=== PATIENT | female | born 1940 | race Caucasian/White ===

== ENCOUNTER → 2017-02-05 | Outpatient (CLI) | payer MEDICARE, MEDICAID ==
[~2017-02-05] MED LIST: AC325T GT; ACET650S15 PR; ATOR10TA66 PO; AZIT-21 PO; BENZ100C18 PO; CEFU500T5 PO; CHOL2000 PO; GFN600TCR PO; HYDR1TAB PO; LRT10T PO; MAGN800O PO; MPR22TI TP; MTF500T PO; NF-FLON16G; RSP.25T PO
--- NOTE | 2017-02-05 18:59 | Diagnostic Imaging Report ---
Bilateral diagnostic mammogram. COMPARISON: 03/30/16. INDICATION: Periareolar nodule. Surgical biopsy was recommended; however, it was not performed, probably due to the condition of the patient. The current study was also evaluated with a Computer Aided Detection (CAD) system. FINDINGS: In the lateral periareolar region of the right breast again seen is a nodule measuring 7 mm and appears stable from the prior exam. Background of scattered fibroglandular tissues are seen with scattered benign-appearing calcifications noted bilaterally. Suggestion of intramammary lymph node in the inferomedial aspect of the left breast is seen without change. IMPRESSION: Stable 7 mm lateral periareolar lesion in the right breast is seen. Ultrasound evaluation pending. ACR BI-RADS Category 0: Incomplete. (Needs additional imaging evaluation). Result letter will be mailed to the patient. Note: At least 10% of breast cancer is not imaged by mammography. Dictated by: Dictated on workstation # [id number]
--- NOTE | 2017-02-05 19:14 | Diagnostic Imaging Report ---
EXAMINATION: Right breast ultrasound. INDICATION: Followup lateral periareolar right breast mass. COMPARISON: 03/30/2016. FINDINGS: At 9 o'clock zone, 1 cm from the nipple, there is a 0.7 x 0.3 x 0.5 cm nodule. This compares to prior measurements of 0.7 x 0.5 x 0.6 cm, stable to minimally smaller in size. There is also no internal color vascularity demonstrated with color Doppler. IMPRESSION: Questionably smaller lateral right periareolar 0.7 cm mass and with no internal vascularity demonstrated at this time. This is still indeterminate but perhaps more likely benign in etiology. A followup ultrasound in six months is recommended to reevaluate. BI-RADS 3. Dictated by: Dictated on workstation # [id number]
== END ==
LOC: RAD 12:20
PROVIDERS: ATTEND Internal Medicine
DX: R92.8 Other abnormal and inconclusive findings on diagnostic imaging of breast (principal); C50.011 Malignant neoplasm of nipple and areola, right female breast
CPT/HCPCS: 77066

== ENCOUNTER → 2017-02-24 | Outpatient (CLI) | payer MEDICARE, MEDICAID ==
[2017-02-24 12:59] LABS: BILIRUBIN,URINE NEGATIVE (NEGATIVE); KETONES,URINE NEGATIVE (NEGATIVE); LEUKOCYTE ESTERASE ,URINE 3+ (NEGATIVE); NITRITE,URINE POSITIVE (NEGATIVE); PH,URINE 7 (5-9); PROTEIN,URINE 1+ (NEGATIVE); UROBILINOGEN,URINE 1 MG/DL (NORMAL)
[2017-02-24 13:09] LABS: CALCIUM OXALATE CRYSTALS,UR FEW /LPF; WBC,URINE 50-100 /HPF
== END ==
PROVIDERS: ATTEND Internal Medicine
DX: N39.0 Urinary tract infection, site not specified (principal); R41.0 Disorientation, unspecified; R45.1 Restlessness and agitation; Z87.440 Personal history of urinary (tract) infections
CPT/HCPCS: 81000; 87088; 87186

== ENCOUNTER 2017-05-09 11:04 | Emergency (ER) | payer MEDICARE, MEDICAID ==
[~2017-05-09] VITALS: Ht 160 cm; Wt 77.1 kg
[2017-05-09 12:02] LABS: BASOPHILS % (AUTO) 0 % (0-10); EOSINOPHILS # (AUTO) 0.1 10^3/uL (0.0-0.3); EOSINOPHILS % (AUTO) 1 % (0-10); LYMPHOCYTES # (AUTO) 1.7 X 10^3 (1.0-4.0); LYMPHOCYTES % (AUTO) 16 % (12-44); MEAN CORPUSCULAR HEMOGLOBIN 28 PG (25-34); MEAN CORPUSCULAR HGB CONC 32 G/DL (32-36); MEAN CORPUSCULAR VOLUME 86 FL (80-99); MEAN PLATELET VOLUME 10.8 FL (7.4-10.4); MONOCYTES # (AUTO) 1.2 X 10^3 (0.0-1.0); MONOCYTES % (AUTO) 11 % (0-12); NEUTROPHILS # (AUTO) 7.8 X 10^3 (1.8-7.8); NEUTROPHILS % (AUTO) 73 % (42-75); PLATELET COUNT 538 10^3/uL (130-400); RED BLOOD COUNT 4.88 10^6/uL (4.35-5.85); RED CELL DISTRIBUTION WIDTH 15.6 % (10.0-14.5); WHITE BLOOD COUNT 10.7 10^3/uL (4.3-11.0)
--- NOTE | 2017-05-09 12:09 | ED General ---
General Chief Complaint: General Problems/Pain Stated Complaint: LOW OXYGEN LEVELS/BLOOD IN STOOL/VOMITING Nursing Triage Note: Pt to ED 5 via wheelchair. Pt to ED from [facility]. Facility reports that pt began having L sided CP this morning and has had bloody stools x2 days and vomiting. Facility also reports recent weight loss. DPOA and facility reports they have been trying to get pt in to see Dr Parra for 2 weeks and pt had appointment this afternoon. DPOA here w/ pt reports that pt has suspected breast cancer and has been getting worked up for this by Dr. Parra. Facility also reports o2 saturation 86% on RA at facility [facility]. Nursing Sepsis Screen: No Definite Risk Source of Information: Patient, Caregiver (DPOA) Exam Limitations: Other (patient is MR) History of Present Illness Time Seen by Provider: 11:20 Initial Comments 77-year-old female patient presents to the emergency Department with the POA with reports of weight loss, left-sided chest/breast pain, and bloody stools 2 days. Does report nausea and vomiting for approximately 2 weeks. Stephanie at [facility] reports patient has lost 13 pounds in the last month. States however patient has been losing weight for several months. The DPOA states he was trying to get patient into Dr. Parra for the last 2 weeks, and was given an appointment this afternoon. Reports symptoms of increased, so patient was brought to the emergency department for evaluation. DPOA states patient has been seen Dr. Parra for possible left breast cancer. States Dr. Parra and the DPOA decided in February to not pursue further testing is a would not wish to proceed with surgery, chemo, or radiation treatment. Timing/Duration: Getting Worse, Other (see HPI) Modifying Factors: worse with Eating (staff reports patient refuses to eat or drink due to n/v.) Allergies and Home Medications Allergies Coded Allergies: No Known Drug Allergies (Unverified , 04/14/10) Home Medications Acetaminophen 325 Mg Tab, 325 MG GT PRN, (Reported) 1-2 PRN Q 4 HRS PRN PAIN OR ELEVATED TEMP Acetaminophen 650 Mg Supp.rect, 650 MG HI Q4HR PRN, (Reported) ONE SUPPOSITORY Q4HR FOR PAIN OR ELEVATED TEMP IF UNABLE TO TAKE ORAL MED Atorvastatin Calcium 10 Mg Tablet, 10 MG PO HS, (Reported) Azithromycin 250 Mg Tab, 250 MG PO DAILY, #2 Ref 0 Prescribed by: JERRY PARRA on 07/25/13818 Benzonatate 100 Mg Capsule, 100 MG PO Q6H PRN for COUGH, #15 Ref 0 Prescribed by: JERRY PARRA on 07/25/13818 Cefuroxime Axetil 500 Mg Tablet, 1 EACH PO BID for 4 Days Prescribed by: JERRY PARRA on 07/25/13818 Cholecalciferol 2,000 Unit Capsule, 2,000 UNIT PO DAILY, (Reported) Fluticasone Propionate 50 Mcg/16 [place], 50 MCG NA DAILY, (Reported) 2 SPRAYS TO EACH NOSTRIL DAILY Guaifenesin 600 Mg Tab, 600 MG PO BID, #15 Ref 0 Prescribed by: JERRY PARRA on 07/25/13818 Loratadine 10 Mg Tab, 10 MG PO PRN, (Reported) Magnesium Hydroxide 800 Mg/5 Ml Oral.susp, 1,200 MG PO PRN, (Reported) UNSPECIFIED CONSTIPATION Metformin Hcl 500 Mg Tab, 500 MG PO DAILY, (Reported) Ondansetron 8 Mg Tab.rapdis, 8 MG PO Q6H PRN for NAUSEA/VOMITING-1ST LINE, #10 Ref 0 Prescribed by: BRENDON CENTENO on 05/09/17 1432 Risperidone 0.25 Mg Tab, 0.25 MG PO DAILY, (Reported) Past Fghlwtz-Xiujld-Lyjlsh Hx Patient Social History Alcohol Use: Denies Use Recreational Drug Use: No Smoking Status: Never a Smoker 2nd Hand Smoke Exposure: No Recent Foreign Travel: No Contact w/Someone Who Travel: No Recent Infectious Disease Expo: No Recent Hopitalizations: No Physical Abuse: No Sexual Abuse: No Immunizations Up To Date Date of Pneumonia Vaccine: Aug 11, 2009 Date of Influenza Vaccine: Jun 04, 2013 Seasonal Allergies Seasonal Allergies: No Surgeries History of Surgeries: No Respiratory History of Respiratory Disorde: No Cardiovascular History of Cardiac Disorders: No Neurological History of Neurological Disord: Yes (MENTAL RETARDATION) Reproductive System Hx Reproductive Disorders: No Sexually Transmitted Disease: No Gastrointestinal History of Gastrointestinal Di: Yes (ESPPHAGEAL REFLUX, CONSTIPATION) Musculoskeletal History of Musculoskeletal Dis: No Endocrine History of Endocrine Disorders: Yes (DIABETES) Cancer History of Cancer: No Psychosocial History of Psychiatric Problem: Yes (DISTURBANCE OF EMOTIONS, REACTIVE PSYCHOSIS) Suicide Risk Score: 0 Integumentary History of Skin or Integumenta: No Blood Transfusions History of Blood Disorders: No Physical Exam Vital Signs Vital Sign - Last 12Hours 05/09/17 11:18 Temp 97.0 Pulse 147 Resp 18 B/P (MAP) 103/60 Pulse Ox 98 O2 Delivery Room Air Capillary Refill : Less Than 3 Seconds Progress/Results/Core Measures Results/Orders Lab Results Laboratory Tests Test 05/09/17 11:50 Range/Units White Blood Count 10.7 4.3-11.0 10^3/uL Red Blood Count 4.88 4.35-5.85 10^6/uL Hemoglobin 13.4 11.5-16.0 G/DL Hematocrit 42 35-52 % Mean Corpuscular Volume 86 80-99 FL Mean Corpuscular Hemoglobin 28 25-34 PG Mean Corpuscular Hemoglobin Concent 32 32-36 G/DL Red Cell Distribution Width 15.6 H 10.0-14.5 % Platelet Count 538 H 130-400 10^3/uL Mean Platelet Volume 10.8 H 7.4-10.4 FL Neutrophils (%) (Auto) 73 42-75 % Lymphocytes (%) (Auto) 16 12-44 % Monocytes (%) (Auto) 11 0-12 % Eosinophils (%) (Auto) 1 0-10 % Basophils (%) (Auto) 0 0-10 % Neutrophils # (Auto) 7.8 1.8-7.8 X 10^3 Lymphocytes # (Auto) 1.7 1.0-4.0 X 10^3 Monocytes # (Auto) 1.2 H 0.0-1.0 X 10^3 Eosinophils # (Auto) 0.1 0.0-0.3 10^3/uL Basophils # (Auto) 0.0 0.0-0.1 10^3/uL Sodium Level 138 135-145 MMOL/L Potassium Level 4.3 3.6-5.0 MMOL/L Chloride Level 105 98-107 MMOL/L Carbon Dioxide Level 18 L 21-32 MMOL/L Anion Gap 15 H 5-14 MMOL/L Blood Urea Nitrogen 51 H 7-18 MG/DL Creatinine 1.61 H 0.60-1.30 MG/DL Estimat Glomerular Filtration Rate 31 BUN/Creatinine Ratio 32 Glucose Level 223 H 70-105 MG/DL Calcium Level 10.7 H 8.5-10.1 MG/DL Total Bilirubin 0.5 0.1-1.0 MG/DL Aspartate Amino Transf (AST/SGOT) 29 5-34 U/L Alanine Aminotransferase (ALT/SGPT) 18 0-55 U/L Alkaline Phosphatase 192 H 40-136 U/L Troponin I < 0.30 <0.30 NG/ML Total Protein 7.3 6.4-8.2 GM/DL Albumin 3.4 3.2-4.5 GM/DL TSH [place] Testing 0.76 0.35-4.94 UIU/ML My Orders Orders - BRENDON CENTENO Cbc With Automated Diff (05/09/17 11:31) Comprehensive Metabolic Panel (05/09/17 11:31) Thyroid Analyzer (05/09/17 11:31) Troponin I (05/09/17 11:31) Saline Lock/Iv-Start (05/09/17 11:31) Ekg Tracing (05/09/17 11:31) Chest 1 View, Ap/Pa Only (05/09/17 11:31) Ct Abdomen/Pelvis Wo (05/09/17 12:20) Vital Signs/I&O Vital Sign - Last 12Hours 05/09/17 11:18 Temp 97.0 Pulse 147 Resp 18 B/P (MAP) 103/60 Pulse Ox 98 O2 Delivery Room Air Blood Pressure Mean: 74 Diagnostic Imaging Diagonstic Imaging: Xray Plain Films/CT/US/NM/MRI: chest Comments FINDINGS: Visible lungs are clear. Posterior lower lobes are poorly evaluated by portable radiography. No pleural effusion or pneumothorax. Normal cardiomediastinal silhouette and pulmonary vasculature. IMPRESSION: No acute cardiopulmonary process by portable radiography. Dictated on workstation # [id number] Reviewed: Reviewed by Me (radiology report reviewed by me.) Departure Impression Impression: Primary Impression: Abnormal CT of the abdomen Additional Impressions: Nausea & vomiting Breast pain in female Weight loss Hematochezia Disposition: 01 HOME, SELF-CARE Condition: Improved Departure-Patient Inst. Decision time for Depature: 14:29 Referrals: JERRY PARRA DO (PCP/Family) Primary Care Physician Patient Instructions: Bloody Stools, Adult (DC), Colon and Rectal Cancer Screening, Nausea and Vomiting, Adult (DC) Add. Discharge Instructions: All discharge instructions reviewed with patient and/or family. Voiced understanding. Medications as instructed. Continue usual home medications. Push fluids. Clear liquids until symptoms improve, then increase diet slowly to a strict low-fat diet. Follow-up with Dr. Parra this week for recheck, further discussion of CT scan findings, and possible need for further diagnostic testing/endoscopy. Call today for appointment time. Return in the emergency department for worsened symptoms, fever, rectal bleeding, black stools , abdominal swelling, vomiting, vomiting blood, chest pain, breast pain, inability with urination, or any other concerns. Scripts Ondansetron (Ondansetron Odt) 8 Mg Tab.rapdis 8 MG PO Q6H Y for NAUSEA/VOMITING-1ST LINE, #10 TAB 0 Refills Prov: BRENDON CENTENO 05/09/17 BRENDON CENTENO May 09, 2017 12:09
--- NOTE | 2017-05-09 12:12 | Diagnostic Imaging Report ---
INDICATION: Left-sided chest pain. COMPARISON: 07/23/2013. FINDINGS: Visible lungs are clear. Posterior lower lobes are poorly evaluated by portable radiography. No pleural effusion or pneumothorax. Normal cardiomediastinal silhouette and pulmonary vasculature. IMPRESSION: No acute cardiopulmonary process by portable radiography. Dictated by: Dictated on workstation # [id number]
[2017-05-09 12:21] LABS: ALANINE AMINOTRANSFERASE 18 U/L (0-55); ALBUMIN 3.4 GM/DL (3.2-4.5); ANION GAP 15 MMOL/L (5-14); ASPARTATE AMINO TRANSFERASE 29 U/L (5-34); BILIRUBIN,TOTAL 0.5 MG/DL (0.1-1.0); BLOOD UREA NITROGEN 51 MG/DL (7-18); BUN/CREATININE RATIO 32; CALCIUM 10.7 MG/DL (8.5-10.1); CARBON DIOXIDE 18 MMOL/L (21-32); CHLORIDE 105 MMOL/L (98-107); CREATININE SERUM 1.61 MG/DL (0.60-1.30); GFR ESTIMATED 31; GLUCOSE 223 MG/DL (70-105); POTASSIUM 4.3 MMOL/L (3.6-5.0); SODIUM 138 MMOL/L (135-145); TOTAL PROTEIN 7.3 GM/DL (6.4-8.2)
[2017-05-09 12:41] LABS: TROPONIN I < 0.30 NG/ML (<0.30)
--- NOTE | 2017-05-09 13:47 | Diagnostic Imaging Report ---
PROCEDURE: CT abdomen and pelvis without contrast. TECHNIQUE: Multiple contiguous axial images were obtained through the abdomen and pelvis without the use of intravenous contrast. INDICATION: Weight loss, bloody stools. There are no prior studies available for comparison. There is a large 6.9 x 14.0-cm area of diminished density occupying much of the dome of the liver. There are also similar appearing but much smaller areas of diminished density throughout the liver. This includes a 3.2 x 5.1-cm area of diminished density in the left lobe of the liver and a 3.0 x 3.1-cm rounded area of diminished density in the medial aspect of the right lobe of the liver. These areas of diminished density are worrisome for a parenchymal replacement process such as metastatic disease. Furthermore, there does seem to be generalized thickening of the wall of a 5 to 6-cm segment of the rectosigmoid portion of the colon. There is also an enlarged lymph node adjacent to this segment of the colon on the right. This measures 1.7 x 2.0 cm. The possibility that there is a neoplastic mass in this area with metastatic disease to the liver should certainly be considered. Endoscopy would be recommended for further evaluation. There are also a few diverticula in the region of the sigmoid colon, and there is slight distortion of the pericolonic fat in this region. There could be an element of mild diverticulitis present also. There is a fair amount of fecal material throughout the colon as well. The spleen, pancreas, adrenals, kidneys, aorta, and inferior vena cava show no sign of an acute abnormality. There is cholelithiasis, but there is no sign of acute cholecystitis. The common bile duct is not dilated. The stomach is partially filled with fluid and consequently difficult to assess. The uterus is surgically absent. The urinary bladder is grossly unremarkable. The appendix was not particularly well visualized, but there are no indirect signs of acute appendicitis. There are a few fluid-filled segments of small bowel. These are nonspecific. There is no sign of a bowel obstruction. There is a vague area of increased density throughout the left sacrum. This is probably secondary to a healing response from an insufficiency fracture. The possibility that this is related to a neoplastic focus should certainly be considered as well. There is also increased density within the pubic symphysis on the right. Whether this is degenerative/posttraumatic in nature or whether this too is related to neoplasm is unclear. If further evaluation of the left sacrum and the right pubic symphysis is desired, then either MRI or a nuclear medicine bone scan would be recommended. The lung bases are clear. IMPRESSION: 1. There are several prominent areas of diminished density within the liver. These do suggest metastatic disease and may well be secondary to a primary carcinoma arising from the rectosigmoid portion of the colon. Endoscopy would be recommended for further study. 2. The areas of increased density involving the left sacrum and the right pubic symphysis may be posttraumatic or degenerative in nature. These could also be secondary to neoplastic disease. Recommendations as above. 3. There is no other evidence for neoplastic disease. 4. There is cholelithiasis, but there is no sign of acute cholecystitis. There may be mild diverticulitis of the sigmoid colon however. 5. There is no acute abnormality of the abdomen or pelvis noted otherwise. 6. These results were discussed with BRANDY Lim, in the ER. Dictated by: Dictated on workstation # [id number]
[2017-05-09] MEDS ORDERED: ONDA8TAB13 PO (14:32)
[2017-05-09 14:45] VITALS: BP 103/60
== END 2017-05-09 14:45 | disposition home or self-care (01) ==
LOC: EDUNIT# 11:04 → ER 11:05
DX: N64.4 Mastodynia (principal); R11.2 Nausea with vomiting, unspecified; R93.5 Abnormal findings on diagnostic imaging of other abdominal regions, including retroperitoneum; R63.4 Abnormal weight loss; K92.1 Melena; K21.9 Gastro-esophageal reflux disease without esophagitis; E11.9 Type 2 diabetes mellitus without complications; Z87.19 Personal history of other diseases of the digestive system; Z79.84 Long term (current) use of oral hypoglycemic drugs
CPT/HCPCS: 36415; 71010; 74176; 80053; 84443; 84484; 85025; 93005